=== PATIENT | female | born 1985 | race Caucasian/White ===

== ENCOUNTER 2016-11-16 04:25 | Inpatient (IN) | payer OTHER ==
[2016-11-16] MEDS ORDERED: Ondansetron 4 MG/2 ML SDV IV PRN (04:40)
[2016-11-16] MEDS ORDERED: Sodium Chloride 0.9% 10 ML Syringe FLUSH PRN (04:40)
[2016-11-16] MEDS ORDERED: Naloxone 0.4 MG/ML SDV IVPUSH PRN (04:47)
[2016-11-16] MEDS ORDERED: Dextrose 5%-Lactated Ringers 1,000 ML IV SCH (05:00)
[2016-11-16] MEDS: HYDROmorphone/Normal Saline 15 MG/30 ML PCA IV PRN (07:15)
[2016-11-16] MEDS ORDERED: hydrOXYzine HCl 25 MG Tab PO PRN (08:46)
[2016-11-16] MEDS: Diazepam 5 MG Tab PO PRN ×3 (09:26→21:02)
[2016-11-16] MEDS: Gabapentin 300 MG Cap PO SCH ×3 (09:27→20:55)
[2016-11-16] MEDS: Pantoprazole 40 MG Vial IV SCH ×2 (09:27→20:55)
[2016-11-16] MEDS: Nicotine 21 MG/24 Hr Patch TRDERM SCH (09:28)
[2016-11-16] MEDS: MVI, Adult with Vitamin K 10 ML, Chromium/Copper/Mang/Selen/Zn 1 ML in Dextrose 5%-Lact... IV SCH ×6 (10:12→17:54)
[2016-11-16] MEDS: QUEtiapine 100 MG Tab PO SCH (20:56)
[2016-11-17] MEDS ORDERED: Propofol 200 MG/20 ML SDV ONE (07:20)
[2016-11-17] MEDS ORDERED: fentaNYL 100 MCG/2 ML SDV ONE (07:20)
[2016-11-17] MEDS ORDERED: Midazolam 1 MG/ML 2 ML SDV ONE (07:20)
[2016-11-17] MEDS: Nicotine 21 MG/24 Hr Patch TRDERM SCH (08:34)
[2016-11-17] MEDS: HYDROmorphone/Normal Saline 15 MG/30 ML PCA IV PRN (08:39)
[2016-11-17] MEDS: Pantoprazole 40 MG Vial IV SCH ×2 (09:00→20:37)
[2016-11-17] MEDS: Gabapentin 300 MG Cap PO SCH ×3 (09:00→20:37)
[2016-11-17] MEDS: Diazepam 5 MG Tab PO PRN ×3 (10:54→20:38)
--- NOTE | 2016-11-17 12:42 | HP ---
HISTORY OF PRESENT ILLNESS: This is a 31-year-old, roughly 10 years status post laparoscopic adjustable gastric band placement. This was done in [place]. She generally has gotten fairly good results from the band, but around 4 days ago, she developed nausea and vomiting after eating a hamburger and has not been able to keep much of anything down, either liquids or solids, since that time. She was seen yesterday in the [place] emergency room and CT was suggestive of some possible band slippage, although not definitive for that. She was transferred here as there are no bariatric surgeons present currently at the facility in [place]. She had all of the fluid taken out of her band in the emergency room, which did not significantly improve her ability to maintain an oral intake. Given the above, she was [facility] PAST MEDICAL HISTORY: Includes morbid obesity, discoid lupus, history of encephalitis, depressive disorder, anxiety, chronic back pain, some problems with opiate dependence, and lumbar disc pain. PAST SURGICAL HISTORY: Includes laparoscopic gastric band placement in 2007, tonsillectomy, skin biopsy, vaginal colposcopy, cholecystectomy, and tooth extractions. FAMILY HISTORY: As per the transfer sheets. SOCIAL HISTORY: As per the transfer sheets. MEDICATIONS: As per the electronic medical records. ALLERGIES: PER THE ELECTRONIC MEDICAL RECORDS. REVIEW OF SYSTEMS: Showed no recent worsening problems apart from the current GI symptoms. PHYSICAL EXAMINATION: GENERAL: The patient is presently afebrile with stable vital signs. HEENT: Unremarkable. HEART: Regular rhythm, normal S1 and S2. LUNGS: Clear. BREASTS: Exam was deferred. ABDOMEN: No significant distention. She was noted to have some mild discomfort in the upper abdomen, but no major abnormalities otherwise. PELVIS AND RECTAL: Exams were deferred. NEURO: Unremarkable. EXTREMITIES: Unremarkable. LABORATORY DATA: Pending. We will include lab tests including a CBC, CMP, mag, phos, ferritin, B12, and folate, along with a Type and Screen. IMPRESSION AND PLAN: The patient most likely has a slippage of her band. Plain x-ray was obtained today and CT scan reviewed, which was not overtly definitive. I think we will obtain a standard upper GI x-ray using water soluble contrast this morning to clarify the current anatomy and then she will likely need to have surgical exploration either later today or tomorrow. This does not appear to be an urgent case in terms of not having much in the way of discomfort at this time. Clarke Carvajal MD /[id number]
[2016-11-17] MEDS: Dextrose 5%-Lactated Ringers 1,000 ML IV SCH ×2 (12:59→21:39)
[2016-11-17] MEDS: Loperamide 2 MG Cap PO PRN ×2 (15:31→21:39)
[2016-11-17] MEDS: QUEtiapine 100 MG Tab PO SCH (20:38)
[2016-11-18] MEDS: Diazepam 5 MG Tab PO PRN (07:19)
[2016-11-18] MEDS: Gabapentin 300 MG Cap PO SCH ×2 (07:20→08:03)
[2016-11-18 07:25] VITALS: BP 119/62
[2016-11-18] MEDS ORDERED: Acetaminophen 500 MG Tab PO PRN (08:07)
[2016-11-18] MEDS: Nicotine 21 MG/24 Hr Patch TRDERM SCH (08:17)
[2016-11-18] MEDS ORDERED: ETODOLAC 400 MG PO SCH (08:30)
--- NOTE | 2016-11-18 08:56 | CR ---
Abdomen 2V AP Flat Upright HISTORY: Check band placement COMPARISON: CT scan 11/15/2016. FINDINGS: Band appears to be at the GE junction level on these noncontrast images. The catheter appea rs to be intact.
--- NOTE | 2016-11-18 08:57 | CR ---
UGI wo KUB HISTORY: Evaluate gastric band placement COMPARISON: CT scan 11/15/2016. FINDINGS: Contrast was administered orally. There is contrast within the stomach in the very proximal duodenum. No reflux seen in the upright AP image.
--- NOTE | 2016-11-18 13:41 | OR ---
DATE OF PROCEDURE: 11/17/2016 PREOPERATIVE DIAGNOSIS: Recently obstructed laparoscopic adjustable gastric band. POSTOPERATIVE DIAGNOSIS: Normally placed laparoscopic adjustable gastric band with outlet obstructed by a food bolus (large piece of carrot). OPERATIVE PROCEDURES: Esophagogastroduodenoscopy with; 1. Biopsies of antrum for CLOtest (30948). 2. Removal of foreign body (ingested carrot) from gastric pouch (93759). ANESTHESIA: IV sedation. 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 She is status post a laparoscopic gastric band placement around 10 years ago with, otherwise, generally good result. An upper GI x-ray yesterday showed good emptying of the pouch with the water- soluble contrast. Plan is to proceed with an upper GI endoscopy today to determine if there are any significant problems with the band or problems such as gastritis or ulceration. The potential risks including bleeding and perforation were discussed, and the patient wishes to proceed. DETAILS OF PROCEDURE: The patient was taken to the operating room and placed in a left lateral decubitus position. IV sedation was administered, after which the upper GI endoscope was passed orally through the length of the esophagus and into the pouch above the gastric band. The level of the imprint of the band appeared to be entirely normal in location. There was a large food bolus, this being a carrot, which was acting as a ball valve at the outlet of the upper pouch at the imprint of the band. This was encircled with a basket and then removed. The gastroscope was then reinserted. The imprint of the band provided a satisfactory-appearing outlet. There was no significant inflammation at that level. Upon retroflexion of the main body of the stomach, the band once again appeared to be in adequate position with no complications. At this point, biopsies were obtained from the antrum and sent for CLOtest for H. pylori to establish the patient's H. pylori status. Minimal bleeding from the biopsy site was seen. The procedure was then concluded. The patient was taken to the recovery room in a satisfactory condition. Clarke Carvajal MD /[id number]
--- NOTE | 2016-11-18 14:08 | PN ---
DATE OF SERVICE: 11/17/2016 The patient underwent an upper endoscopy today. She had, what appeared to be, a normally located band without specific complications. She had a large piece of carrot, which was acting as a ball valve at the outlet of the upper pouch. This was removed and a CLOtest obtained from the antrum. The plan today will be to begin a Step 3 diet, make sure that she is able to take some soft solids satisfactorily. If she does okay with that, we will likely have her go home tomorrow and have Dietary evaluate the situation tomorrow morning as well. Clarke Carvajal MD /[id number]
--- NOTE | 2016-11-19 09:47 | DISCH ---
FINAL DIAGNOSIS: Gastric obstruction at laparoscopic band imprint secondary to a large food bolus (poorly chewed carrot). SECONDARY DIAGNOSES: 1. Laparoscopic band status. 2. History of morbid obesity, resolved status post laparoscopic band placement. 3. History of opioid dependence. 4. Discogenic lower back pain. 5. History of lupus. 6. History of anxiety and depression. OPERATIVE PROCEDURE: On , upper GI endoscopy with: 1. Biopsies of antrum for CLOtest. 2. Removal of the gastric foreign body (a large piece of carrot causing a ball valve obstruction at outlet of gastric pouch). HOSPITAL COURSE: This is a 31-year-old female transferred early on the morning of 11/16/2016 with a 36-hour history of nausea, vomiting, and inability to keep any significant oral intake down for roughly 36 hours. She is status post laparoscopic gastric band placement in 2007. There was initially, on the CT scan at [facility], some suggestion of a possible component of slippage of the band. All of the fluid was removed from the band, and that did not significantly improve her ability to maintain oral intake. Due to the lack of any bariatric surgery coverage in [place], she was transferred here for further care. After admission, we obtained a plain x-ray of the abdomen initially, which showed what looked to be a normal-appearing band placement. A subsequent upper GI x-ray using water soluble contrast showed no obstruction through the area of the band. On 11/17/2016, the patient underwent an upper GI endoscopy. She was noted to have a large piece of carrot which was obviously poorly chewed, which was acting as a ball valve. The outlet through the band, however, was within normal limits, this being somewhat smaller than some but likely very adequate, should the patient be chewing her food adequately. There was no significant inflammation or ulceration or other complications evident on the upper endoscopy relative to the band. She did have some mild redness in the antrum, and biopsy was obtained there for CLOtest, after removal of the foreign body. Following this, if she is able to eat solids without difficulty, she will be discharged home today with more or less a regular diet. I instructed her to chew the food well. She will be seen by Dietary prior to discharge, and at this point, all of the fluid will remain out of the band. She will be following up with Zoila Scherer at [facility] on 12/02/2016 for a laparoscopic band followup with x-ray and filling, if needed at that time. Otherwise, she will continue her usual home medications.
== END 2016-11-18 10:23 | disposition home or self-care (01) | DRG 395 ==
LOC: JP.2SS 04:25
PROVIDERS: ADMIT Surgery; ATTEND Surgery
PROC: 0DC68ZZ Extirpation of Matter from Stomach, Via Natural or Artificial Opening Endoscopic (ICD-10-PCS; principal; 2016-11-17)
PROC: 0DB68ZX Excision of Stomach, Via Natural or Artificial Opening Endoscopic, Diagnostic (ICD-10-PCS; principal; 2016-11-17)
DX: T18.2XXA Foreign body in stomach, initial encounter (principal); X58.XXXA Exposure to other specified factors, initial encounter; Y93.89 Activity, other specified; Y92.9 Unspecified place or not applicable; L93.0 Discoid lupus erythematosus; F32.9 Major depressive disorder, single episode, unspecified; F41.9 Anxiety disorder, unspecified; M54.9 Dorsalgia, unspecified; G89.29 Other chronic pain; Z86.61 Personal history of infections of the central nervous system; K31.89 Other diseases of stomach and duodenum; Z98.84 Bariatric surgery status; F11.21 Opioid dependence, in remission
CPT/HCPCS: 36415; 74020; 74020-26; 74240; 74240-26; 80053; 82607; 82728; 82746; 83735; 84100; 85027; 86850; 86900; 86901; 87081; 94762; A9270-GY; C9113; J1170; J2250; J2704; J3010; J7042